=== PATIENT | male | born 1980 | race Caucasian/White ===

== ENCOUNTER 2018-06-30 18:03 | Emergency (ER) | payer OTHER, MEDICAID ==
[2018-06-30 18:10] VITALS: RESP 18
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
[2018-06-30 20:45] VITALS: BP 118/78; PULSE 78; TEMP 98; O2SAT 100
--- NOTE | 2018-07-01 08:55 | RAD ---
Date of service: 06/30/2018 PROCEDURE: Cervical Spine Radiographs. HISTORY: Pain. COMPARISON: None. FINDINGS: BONES: Alignment maintained. No fracture. Dens Intact. DISC SPACES: Normal. SOFT TISSUES: Normal. No prevertebral soft tissue swelling. OTHER FINDINGS: None. IMPRESSION: Normal cervical spine radiographs
== END 2018-06-30 20:43 | disposition home or self-care (01) ==
LOC: H.ER 18:03
DX: S16.1XXA Strain of muscle, fascia and tendon at neck level, initial encounter (principal); V43.52XA Car driver injured in collision with other type car in traffic accident, initial encounter; Y92.410 Unspecified street and highway as the place of occurrence of the external cause